=== PATIENT | female | born 1990 | race Caucasian/White ===

== ENCOUNTER 2024-09-13 18:30 | Inpatient (IN) | payer MEDICAID, OTHER ==
[~2024-09-13] VITALS: Ht 154.9 cm; Wt 53.3 kg
[2024-09-13] MEDS ORDERED: LEVO125T4 PO (18:36)
[2024-09-13 19:22] LABS: HEMATOCRIT 39.3 % (36.0-47.0); HEMOGLOBIN 12.9 g/dl (12.0-15.5); MEAN CORPUSCULAR HEMOGLOBIN 28.9 pg (27.0-33.0); MEAN CORPUSCULAR HGB CONC 32.8 g/dl (32.0-36.5); MEAN CORPUSCULAR VOLUME 88.1 fl (80.0-96.0); PLATELET COUNT, AUTOMATED 259 10^3/uL (150-450); RED BLOOD COUNT 4.46 10^6/uL (4.00-5.40); WHITE BLOOD COUNT 7.4 10^3/uL (4.0-10.0)
[2024-09-13 19:42] LABS: ETHYL ALCOHOL (ETHANOL) < 0.003 % (0.000-0.010)
[2024-09-13 19:43] LABS: ALBUMIN 3.8 G/DL (3.2-5.2); ALKALINE PHOSPHATASE 98 U/L (35-104); ALT/SGPT 9 U/L (7.0-40); AST/SGOT < 8 U/L (<34); BILIRUBIN,DIRECT 0.1 MG/DL (<0.4); BILIRUBIN,TOTAL 0.3 MG/DL (0.3-1.2); BLOOD UREA NITROGEN 11 MG/DL (9-23); CALCIUM LEVEL 9.4 MG/DL (8.5-10.1); CARBON DIOXIDE LEVEL 28 MMOL/L (20-31); CHLORIDE LEVEL 107 MMOL/L (98-107); CREATININE FOR GFR 0.65 MG/DL (0.55-1.30); GLOMERULAR FILTRATION RATE > 60.0 (>60); GLUCOSE, FASTING 112 MG/DL (60-100); POTASSIUM SERUM 3.8 MMOL/L (3.5-5.1); SALICYLATE LEVEL < 3.0 MG/DL (<30); SODIUM LEVEL 141 MMOL/L (136-145); TOTAL PROTEIN 6.8 G/DL (5.7-8.2)
[2024-09-13 19:46] LABS: THYROID STIMULATING HORMONE 3.175 uIU/ML (0.55-4.78)
[2024-09-13 19:53] LABS: AMPHETAMINES LEVEL URINE NEGATIVE (NEGATIVE); BARBITURATES URINE NEGATIVE (NEGATIVE); BENZODIAZEPINES URINE NEGATIVE (NEGATIVE); CANNABINOIDS URINE NEGATIVE (NEGATIVE); COCAINE METABOLITE URINE NEGATIVE (NEGATIVE); METHADONE URINE NEGATIVE (NEGATIVE); PHENCYCLIDINE URINE NEGATIVE (NEGATIVE)
[2024-09-13 19:54] LABS: OPIATES URINE NEGATIVE (NEGATIVE)
[2024-09-13 22:35] LABS: HCG, SERUM QUALITATIVE NEGATIVE (NEGATIVE)
[2024-09-14] MEDS ORDERED: traZODone 50 MG TAB PO PRN (00:15)
[2024-09-14] MEDS ORDERED: ACETAMINOPHEN 325 MG TAB PO PRN (00:15)
[2024-09-14] MEDS ORDERED: MAALOX 30 ML SUSP *UDC PO PRN (00:15)
[2024-09-14] MEDS ORDERED: diphenhydrAMINE 25MG CAP PO PRN (00:15)
[2024-09-14] MEDS ORDERED: IBUPROFEN 400MG TAB PO PRN (00:15)
[2024-09-14] MEDS ORDERED: MOM 30ML SUSPENSION UDC PO PRN (00:15)
[2024-09-14] MEDS ORDERED: HOME MED LIST COMPLETE! XX SCH (00:20)
[2024-09-14 01:32] VITALS: BP 118/59; TEMP 98.7; O2SAT 98
[2024-09-14] MEDS: LEVOTHYROXINE 125MCG TABLET (0.125MG) PO SCH (06:15)
[2024-09-14 06:29] VITALS: BP 111/65; TEMP 97.6; O2SAT 100
[2024-09-14] MEDS: SERTRALINE HCL 50 MG TAB PO SCH (11:47)
[2024-09-14 14:52] VITALS: BP 114/74; TEMP 97.7; O2SAT 99
[2024-09-15 06:34] VITALS: BP 101/64; TEMP 97; O2SAT 97
[2024-09-15 16:34] VITALS: BP 102/66; TEMP 98.5; O2SAT 98
[2024-09-16 06:31] VITALS: BP 125/64; TEMP 98.2; O2SAT 97
[2024-09-16 15:14] VITALS: BP 100/65; TEMP 98.7; O2SAT 97
[2024-09-17 06:21] VITALS: BP 118/67; TEMP 98.4; O2SAT 98
[2024-09-17 16:05] VITALS: BP 121/66; TEMP 98; O2SAT 99
[2024-09-18 06:53] VITALS: BP 115/75; TEMP 97.7; O2SAT 97
[2024-09-18 14:47] VITALS: BP 120/71; TEMP 98.3; O2SAT 100
[2024-09-19 06:48] VITALS: BP 107/61; TEMP 98; O2SAT 98
[2024-09-19] MEDS ORDERED: SERT50TA29 PO (08:08)
== END 2024-09-19 14:54 | disposition home or self-care (01) | DRG 754 ==
LOC: M ED 18:30 → M ED INP 09-14 00:11 → M PSY 09-14 01:09
PROVIDERS: ADMIT Psychiatry & Neurology Psychiatry; ATTEND Psychiatry & Neurology Psychiatry
DX: F32.A Depression, unspecified (principal); E03.9 Hypothyroidism, unspecified; Z63.0 Problems in relationship with spouse or partner; Z56.0 Unemployment, unspecified; Z79.890 Hormone replacement therapy; Z91.414 Personal history of adult intimate partner abuse